=== PATIENT | female | born 1970 | race Caucasian/White ===

== ENCOUNTER 2022-03-10 07:04 | Day surgery (SDC) | payer BC ==
[~2022-03-10 07:04] MED LIST: Lactated Ringers 1,000 ML IV SCH
[2022-03-10] MEDS ORDERED: Propofol 200 MG/20 ML SDV ONE (08:12)
[2022-03-10] MEDS ORDERED: fentaNYL 100 MCG/2 ML SDV ONE (08:12)
[2022-03-10] MEDS ORDERED: Ondansetron 4 MG/2 ML SDV ONE (08:12)
== END 2022-03-10 10:50 | disposition home or self-care (01) ==
LOC: VM.SDS 07:04
PROVIDERS: ATTEND Family Medicine
DX: Z12.11 Encounter for screening for malignant neoplasm of colon (principal); K59.09 Other constipation; E66.9 Obesity, unspecified; G47.00 Insomnia, unspecified; F33.1 Major depressive disorder, recurrent, moderate; M45.9 Ankylosing spondylitis of unspecified sites in spine; Z88.2 Allergy status to sulfonamides; Z90.49 Acquired absence of other specified parts of digestive tract; Z98.890 Other specified postprocedural states; Z79.899 Other long term (current) drug therapy; Z91.013 Allergy to seafood; Z88.8 Allergy status to other drugs, medicaments and biological substances; Z68.28 Body mass index [BMI] 28.0-28.9, adult
CPT/HCPCS: 00812; 45378; J2405; J2704; J3010; J7120

== ENCOUNTER 2022-03-11 08:11 | Day surgery (SDC) | payer BC ==
[2022-03-11] MEDS: Lactated Ringers 1,000 ML IV SCH (08:30)
[2022-03-11] MEDS ORDERED: Propofol 200 MG/20 ML SDV ONE ×2 (09:32→10:34)
[2022-03-11] MEDS ORDERED: fentaNYL 100 MCG/2 ML SDV ONE (09:32)
[2022-03-11] MEDS ORDERED: Ondansetron 4 MG/2 ML SDV ONE (09:35)
== END 2022-03-11 11:50 | disposition home or self-care (01) ==
LOC: VM.SDS 08:11
PROVIDERS: ATTEND Student in an Organized Health Care Education/Training Program
DX: Z12.11 Encounter for screening for malignant neoplasm of colon (principal); K63.89 Other specified diseases of intestine; E66.9 Obesity, unspecified; G47.00 Insomnia, unspecified; Z98.890 Other specified postprocedural states; F33.1 Major depressive disorder, recurrent, moderate; F98.8 Other specified behavioral and emotional disorders with onset usually occurring in childhood and adolescence; M45.9 Ankylosing spondylitis of unspecified sites in spine; K59.09 Other constipation; Z79.899 Other long term (current) drug therapy; Z88.8 Allergy status to other drugs, medicaments and biological substances; Z88.2 Allergy status to sulfonamides; Z91.013 Allergy to seafood; Z68.28 Body mass index [BMI] 28.0-28.9, adult
CPT/HCPCS: 00811; J2405; J2704; J3010; J7120